=== PATIENT | male | born 1980 | race Caucasian/White ===

== ENCOUNTER 2023-03-22 14:33 | Emergency (ER) | payer OTHER, SELFPAY ==
[2023-03-22 14:34] VITALS: BP 127/91; PULSE 92; RESP 18; TEMP 36.4; O2SAT 98; BMI 39.0
[2023-03-22] MEDS: HYDROcodone Bitartrate/Apap 5/325 Tablet PO (15:11)
--- NOTE | 2023-03-22 15:15 | RAD_ITS ---
STUDY: X-RAY - RIGHT HAND, ATTENTION FIRST FINGER REASON FOR EXAM: Male, 42 years old. Injury/Pain -- Thumb TECHNIQUE: 3 view(s) of the finger were obtained. COMPARISON: None. FINDINGS: Normal metacarpal head. Normal metacarpophalangeal joint. Normal proximal phalanx. Normal distal phalanx. Normal interphalangeal joint. There is no demonstrated fracture. RAD/Finger(s) Min 2 Views IMPRESSION: No definite acute or significant abnormality seen. Electronically Signed: August Torres MD at 15:55 EDT ,
--- NOTE | 2023-03-22 16:34 | EDS_ITS ---
HPI History of Present Illness HPI Narrative: Patient presents with injury to his right thumb that occurred today. Patient was in a batting cage and got hit on the end of his thumb by a ball. States that his nail was bent backwards. Patient admits to some tingling in the tip of his thumb. Patient denies any weakness. Patient denies any other injuries. Chief Complaint: Upper Extremity Injury Informant: patient Occured/Mechanism Mechanism/Context: Yes blunt trauma Onset/Context/Timing Onset: Today Context: Sudden Onset Timing: Continuous Quality of Pain: Aching Location: Distal phalanx right thumb Worsened by: Nothing Relieved by: Nothing Associated Symptoms Associated Symptoms: Positive for Parasthesia; Negative for Weakness PFSH PFSH Medical History no medical history Home Medications clindamycin HCl 150 mg capsule 300 mg PO 4X/DAY ##80 01/18/17 [Rx Last Taken Unknown] hydrocodone-acetaminophen 5-325mg 5mg-325mg 1 - 2 tab PO Q4H PRN PRN Pain ##7 01/18/17 [Rx Last Taken Unknown] Allergy/AdvReac Type Severity Reaction Status Date / Time Penicillins Allergy Severe Anaphylaxis Verified 03/22/23 14:36 mushroom Allergy Swelling Verified 03/22/23 14:36 venom-honey bee Allergy Swelling Verified 03/22/23 14:36 [bee venom (honey bee)] Surgical History (Updated 03/22/23 @ 16:[address] Romeo Muniz DO) Hx of external ear surgery Hx of nasal septoplasty Social History Smoking Status: Former smoker ROS ROS ED Constitutional Constitutional ED: Denies chills or fever(s) Eyes Eyes: Denies blurry vision or change in vision ENT ENT ED: Denies rhinorrhea or sore throat Cardiovascular Cardiovascular: Denies chest pain or palpitations Respiratory/Chest Respiratory/Chest: Denies cough or dyspnea Gastrointestinal Gastrointestinal: Denies nausea or vomiting Genitourinary Genitourinary ED: Denies dysuria or hematuria Musculoskeletal Musculoskeletal: Denies back pain or neck pain Integumentary Denies abscess or rash Neurologic Neurologic: Denies headache(s) or weakness Allergic/Immunologic Allergic/Immunologic ED: Denies mouth swelling or urticaria EXAM Physical Exam Const Vital Signs: 03/22/23 14:34 Temperature 97.5 F L Temperature Source Temporal Pulse Rate 92 Respiratory Rate 18 Blood Pressure 127/91 H Blood Pressure Mean 103 Pulse Ox 98 Oxygen Delivery Method Room Air Positive well nourished, well developed and obese General Appearance ED: well developed and NAD Nutritional Appearance: obese HEENT Reports moist mucous membranes Neck full ROM and supple Extremity Extremity Narrative: There is tenderness over the distal phalanx of the right thumb. The distal third of the nail plate was folded back. There is some mild ecchymosis over the distal third of the nail. There is no bleeding noted. There is full range of motion of the IP and MP joints of the right thumb. Sensation was intact light touch in all digits. Capillary refill was less than 2 seconds in all digits. Neuro oriented x3, CN's II-XII intact bilaterally, moves all extremities, no focal motor deficits and no sensory deficits noted Sensorium / Orientation: alert Motor Exam: strength 5/5 throughout Psych mental status grossly normal MDM MDM MDM Narrative Medical decision making narrative: Differential diagnosis includes contusion, fracture, sprain, and nail plate injury. The nail plate was reduced. X-rays of the right thumb will be obtained to assess for fracture. Radiography Diagnostic Testing: Clinical Impression(s) from Imaging Studies Finger X-Ray 03/22/23 15:15 IMPRESSION: No definite acute or significant abnormality seen. Electronically Signed: August Torres MD at 15:55 EDT , X-rays of the right thumb were obtained. There are 3 views. On my independent interpretation, there is no acute fracture or dislocation. There is no soft tissue swelling. Radiologist also interpreted the x-rays and agrees. Treatment and Re-Evaluation Narrative: Patient was given a dose of [place] here. Patient was feeling better on ree valuation. Patient was advised of his findings. Patient was advised that since the bruising is less than half of the nailbed, trephination is not necessary at this time. Patient was instructed to ice and elevate the right thumb. Patient was instructed to take Tylenol and ibuprofen as needed for pain. Patient was advised that the nail plate may eventually fall off. Patient understands and is agreeable with the plan. All questions were answered. Discharge Plan Triage Chief Complaint: Upper Extremity Injury ED Provider: Romeo Muniz Dx/Rx/DC Orders Clinical Impression: Contusion of right thumb with damage to nail, initial encounter Instructions: ED Finger Contusion Prescriptions: No Action clindamycin HCl 150 MG capsule 300 mg PO 4X/DAY Qty: 80 0RF hydrocodone-acetaminophen 1 TABLET tablet 1 - 2 tab PO Q4H PRN PRN (Reason: Pain) Qty: 7 0RF Primary Care Provider: Yuliet Bain Referrals: Yuliet Bain MD [Primary Care Provider] - 5-7 Days Disposition Disposition: Home, Self Care
== END 2023-03-22 16:58 | disposition home or self-care (01) ==
PROVIDERS: Emergency Provider Emergency Medicine; PCP Family Medicine; Visit Provider Emergency Medicine
DX: S60.111A Contusion of right thumb with damage to nail, initial encounter (principal); Z87.891 Personal history of nicotine dependence; E66.9 Obesity, unspecified; W21.00XA Struck by hit or thrown ball, unspecified type, initial encounter
CPT/HCPCS: 73140; 99283